=== PATIENT | male | born 1995 | race Caucasian/White ===

== ENCOUNTER 2022-05-27 18:40 | Emergency (ER) | payer BC ==
[2022-05-27] MEDS ORDERED: KETOROLAC 15 MG/ML 1 ML VIAL IVP STA (19:09)
--- NOTE | 2022-05-27 19:18 | ED ---
General Adult HPI - General Chief complaint: Urogenital Stated complaint: Groin Pain Time Seen by Provider: 05/27/22 18:58 Source: patient, RN notes reviewed Mode of arrival: ambulatory Limitations: no limitations - History of Present Illness Initial comments: 27-year-old male with no significant past medical history presents to the emergency department with a chief complaint of right testicular pain. He notes that he has been having this pain since sometime in March. He describes the [place] that comes and goes. It will last for a day and then resolved on its own. He does admit to working on his feet all day however denies any recent long travel or sitting or known trauma/injury. He has been taking tylenol without relief. He denies fever, chills, abdominal pain, flank pain, dysuria, hematuria. Denies concern for STD. He denies hx of varicocele/testicular torsion. - Related Data Previous Rx's Medication Instructions Recorded Doxycycline [Vibramycin] 100 mg PO BID 14 Days #2 capsule 05/27/22 Allergies Allergy/AdvReac Type Severity Reaction Status Date / Time No Known Allergies Allergy Verified 05/27/22 20:43 Review of Systems ROS Statement: Those systems with pertinent positive or pertinent negative responses have been documented in the HPI. ROS Other: All systems not noted in ROS Statement are negative. Past Medical History Past Medical History: No Reported History History of Any Multi-Drug Resistant Organisms: None Reported Additional Past Surgical History / Comment(s): vasectomy Past Psychological History: No Psychological Hx Reported Smoking Status: Never smoker Past Alcohol Use History: Occasional Past Drug Use History: None Reported General Exam Limitations: no limitations General appearance: alert, in no apparent distress Head exam: Present: atraumatic, normocephalic, normal inspection Eye exam: Present: normal appearance, PERRL, EOMI. Absent: scleral icterus, conjunctival injection, periorbital swelling ENT exam: Present: normal exam, mucous membranes moist Neck exam: Present: normal inspection. Absent: tenderness, meningismus, lymphadenopathy Respiratory exam: Present: normal lung sounds bilaterally. Absent: respiratory distress, wheezes, rales, rhonchi, stridor Cardiovascular Exam: Present: regular rate, normal rhythm, normal heart sounds. Absent: systolic murmur, diastolic murmur, rubs, gallop, clicks GI/Abdominal exam: Present: soft, normal bowel sounds. Absent: distended, tenderness, guarding, rebound, rigid exam: Present: normal inspection, testicular tenderness (mild right ), other (cremastic reflex remains intact). Absent: urethral discharge, scrotal swelling External exam: Present: normal external exam. Absent: erythema, swelling, lesions, lacerations, ecchymosis Extremities exam: Present: normal inspection, full ROM, normal capillary refill. Absent: tenderness, pedal edema, joint swelling, calf tenderness Back exam: Present: normal inspection Neurological exam: Present: alert, oriented X3, CN II-XII intact Psychiatric exam: Present: normal affect, normal mood Skin exam: Present: warm, dry, intact, normal color. Absent: rash Course Vital Signs 05/27/22 05/27/22 18:49 21:43 Temperature 97.2 F L 98.3 F Pulse Rate 103 H 68 Respiratory 20 18 Rate Blood Pressure 184/96 142/71 O2 Sat by Pulse 98 99 Oximetry Medical Decision Making - Medical Decision Making Was pt. sent in by a medical professional or institution (LUCIA Bo, ELECTRONIC PLOTTING SYSTEM OPERATOR, urgent care, hospital, or snf...) When possible be specific @ -[No] Did you speak to anyone other than the patient for history (EMS, parent, family, police, friend...)? What history was obtained from this source @ -[No] Did you review nursing and triage notes (agree or disagree)? Why? @ -[I reviewed and agree with nursing and triage notes] Were old charts reviewed (outside hosp., previous admission, EMS record, old EKG, old radiological studies, urgent care reports/EKG's, snf records)? Report findings @ -[No old charts were reviewed] Differential Diagnosis (chest pain, altered mental status, abdominal pain women, abdominal pain men, vaginal bleeding, weakness, fever, dyspnea, syncope, headache, dizziness, GI bleed, back pain, seizure, CVA, palpatations, mental health)? @ -[not applicable] EKG interpreted by me (3pts min.). @ -[As above] X-rays interpreted by me (1pt min.). @ -[None done] CT interpreted by me (1pt min.). @ -[None done] U/S interpreted by me (1pt. min.). @ Scrotal ultrasound negative for any evidence of torsion however suggests epididymitis to the right teste What testing was considered but not performed or refused? (CT, X-rays, U/S, labs)? Why? @ -[None] What meds were considered but not given or refused? Why? @ -[None] Did you discuss the management of the patient with other professionals (professionals i.e. , PA, ELECTRONIC PLOTTING SYSTEM OPERATOR, lab, RT, psych nurse, social sciences chair, demi chef, teacher, conservation enforcement officer, land surveyor manager)? Give summary @ -[No] Was smoking cessation discussed for >3mins.? @ -[No] Was critical care preformed (if so, how long)? @ -[No] Were there social determinants of health that impacted care today? How? (Homelessness, low income, unemployed, alcoholism, drug addiction, transportation, low edu. Level, literacy, decrease access to med. care, shelter, rehab)? @ -[No] Was there de-escalation of care discussed even if they declined (Discuss DNR or withdrawal of care, Hospice)? DNR status @ -[No] What co-morbidities impacted this encounter? (DM, HTN, Smoking, COPD, CAD, Cancer, CVA, ARF, Chemo, Hep., AIDS, mental health diagnosis, sleep apnea, morbid obesity)? @ -[None] Was patient admitted / discharged? Hospital course, mention meds given and route, prescriptions, significant lab abnormalities, going to OR and other pertinent info. @ -27-year-old male presents to the emergency department with testicular pain. he had a history and physical performed while in the emergency department physical exam reveals mild tenderness to the right testicle. Cremastic reflex remains intact. He had lab work and imaging performed. Labs unremarkable. US suggestive of epidymitis. He was given azithromycin, doxycycline, and rocephin. He was given a prescription for doxycycline. He was encouraged to follow up with his primary care doctor within 1-2 days if symptoms worsen or persist. Return precautions were discussed. Patient was discharged in stable condition all questions and comments were addressed. I discussed the case with GISSELL Lauren who agrees with the plan of care. Undiagnosed new problem with uncertain prognosis? @ -[No] Drug Therapy requiring intensive monitoring for toxicity (Heparin, Nitro, Insulin, Cardizem)? @ -[No] Were any procedures done? @ -[No] Diagnosis/symptom? @ -[default] Acute, or Chronic, or Acute on Chronic? @ -acute epididymitis Uncomplicated (without systemic symptoms) or Complicated (systemic symptoms)? @ -uncomplicated Side effects of treatment? @ -[No] Exacerbation, Progression, or Severe Exacerbation? @ -[No] Poses a threat to life or bodily function? How? (Chest pain, [place], [place], pneumonia, PE, COPD, DKA, ARF, appy, cholecystitis, CVA, Diverticulitis, Homicidal, Suicidal, threat to staff... and all critical care pts) @ -[No] - Lab Data Result diagrams: 05/27/22 19:41 05/27/22 19:41 Lab Results 05/27/22 05/27/22 05/27/22 Range/Units 19:41 19:41 20:05 WBC 8.6 (3.8-10.6) k/uL RBC 5.07 (4.30-5.90) m/uL Hgb 14.7 (13.0-17.5) gm/dL Hct 43.2 (39.0-53.0) % MCV 85.2 (80.0-100.0) fL MCH 28.9 (25.0-35.0) pg MCHC 34.0 (31.0-37.0) g/dL RDW 13.5 (11.5-15.5) % Plt Count 209 (150-450) k/uL MPV 8.5 Neutrophils % 64 % Lymphocytes % 27 % Monocytes % 5 % Eosinophils % 2 % Basophils % 1 % Neutrophils # 5.5 (1.3-7.7) k/uL Lymphocytes # 2.3 (1.0-4.8) k/uL Monocytes # 0.4 (0-1.0) k/uL Eosinophils # 0.2 (0-0.7) k/uL Basophils # 0.1 (0-0.2) k/uL Sodium 141 (137-145) mmol/L Potassium 4.6 (3.5-5.1) mmol/L Chloride 109 H (98-107) mmol/L Carbon Dioxide 25 (22-30) mmol/L Anion Gap 7 mmol/L BUN 16 (9-20) mg/dL Creatinine 0.96 (0.66-1.25) mg/dL Est GFR (CKD-EPI)AfAm >90 (>60 ml/min/1.73 sqM) Est GFR (CKD-EPI)NonAf >90 (>60 ml/min/1.73 sqM) Glucose 91 (74-99) mg/dL Calcium 9.2 (8.4-10.2) mg/dL Urine Color Yellow Urine Appearance Clear (Clear) Urine pH 5.5 (5.0-8.0) Ur Specific [place] 1.029 (1.001-1.035) Urine Protein Negative (Negative) Urine Glucose (UA) Negative (Negative) Urine Ketones Negative (Negative) Urine Blood Trace H (Negative) Urine Nitrite Negative (Negative) Urine Bilirubin Negative (Negative) Urine Urobilinogen <2.0 (<2.0) mg/dL Ur Leukocyte Esterase Negative (Negative) Urine RBC 8 H (0-5) /hpf Urine WBC 2 (0-5) /hpf Urine Mucus Moderate H (None) /hpf Disposition Clinical Impression: Epididymitis Disposition: HOME SELF-CARE Condition: Stable Prescriptions: Doxycycline [Vibramycin] 100 mg PO BID 14 Days #2 capsule Is patient prescribed a controlled substance at d/c from ED?: No Referrals: None,Stated [Primary Care Provider] - 1-2 days Daniel Parry MD [STAFF PHYSICIAN] - 1-2 days
[2022-05-27 19:50] LABS: Basophils # (A) 0.1 k/uL (0-0.2); Basophils % (A) 1 %; Eosinophils # (A) 0.2 k/uL (0-0.7); Eosinophils % (A) 2 %; HCT 43.2 % (39.0-53.0); HGB 14.7 gm/dL (13.0-17.5); Lymphocytes # (A) 2.3 k/uL (1.0-4.8); Lymphocytes % (A) 27 %; MCH 28.9 pg (25.0-35.0); MCV 85.2 fL (80.0-100.0); Mean Platelet Volume 8.5; Monocytes # (A) 0.4 k/uL (0-1.0); Monocytes % (A) 5 %; Neutrophils # (A) 5.5 k/uL (1.3-7.7); Neutrophils % (A) 64 %; Platelet Count 209 k/uL (150-450); RBC 5.07 m/uL (4.30-5.90); RDW 13.5 % (11.5-15.5); WBC 8.6 k/uL (3.8-10.6)
[2022-05-27 19:56] LABS: African American GFR (CKD) >90 (>60 ml/min/1.73 sqM); Anion Gap 7 mmol/L; Blood Urea Nitrogen 16 mg/dL (9-20); Calcium 9.2 mg/dL (8.4-10.2); Carbon Dioxide 25 mmol/L (22-30); Chloride 109 mmol/L (98-107); Glucose 91 mg/dL (74-99); Non-African American GFR(CKD) >90 (>60 ml/min/1.73 sqM); Potassium 4.6 mmol/L (3.5-5.1); Sodium 141 mmol/L (137-145)
--- NOTE | 2022-05-27 20:23 | US ---
EXAMINATION TYPE: US scrotum with doppler. Grayscale and color Doppler Duplex imaging performed of t edwin scrotum. DATE OF EXAM: 05/27/2022 COMPARISON: NONE CLINICAL HISTORY: testicular pain. Right testicular pain on and off x "a couple months" EXAM MEASUREMENTS: TESTICLES: Right Testicle: 5.1 x 4.4 x 3.2 cm Left Testicle: 5.6 x 3.3 x 3.1 cm EPIDIDYMIS HEAD: Right Epididymis: 1.5 cm. Epididymal cyst visualized measuring 1.1 x 0.8 x 0.8cm Left Epididymis: 1.1 cm Doppler performed to assess for testicular vascularity; good bilateral color flow and waveforms are s een. There is no evidence of testicular torsion. Presence of hydroceles: No Presence of varicoceles: No Complex and heterogeneous area visualized lateral to the right testicle with hypervascularity. IMPRESSION: 1. No testicular mass or torsion. 2. Increased flow to the right epididymis suggestive of epididymitis.
[2022-05-27 20:32] LABS: Appearance,Urine Clear (Clear); Bilirubin,Urine Negative (Negative); Blood,Urine Trace (Negative); Color,Urine Yellow; Glucose,Urine (UA) Negative (Negative); Ketones,Urine Negative (Negative); Leukocyte Esterase,Urine Negative (Negative); Mucus,Urine Moderate /hpf; Nitrite,Urine Negative (Negative); PH, Urine 5.5 (5.0-8.0); Protein,Urine Negative (Negative); RBC,Urine 8 /hpf (0-5); Specific Gravity,Urine 1.029 (1.001-1.035); Urobilinogen,Urine <2.0 mg/dL (<2.0); WBC,Urine 2 /hpf (0-5)
[2022-05-27] MEDS ORDERED: AZITHROMYCIN 500 MG TAB PO STA (21:26)
[2022-05-27] MEDS ORDERED: DOXYCYCLINE 100 MG CAP PO STA (21:27)
[2022-05-27 21:44] VITALS: BP 142/71; PULSE 68; RESP 18; TEMP 98.3
== END 2022-05-27 21:43 | disposition home or self-care (01) ==
LOC: EC 18:40
DX: N45.1 Epididymitis (principal); N50.3 Cyst of epididymis
CPT/HCPCS: 36415; 80048; 85025; 81001; 93975; 76870; 99284; 96374; J1885; 87491; 87591

== ENCOUNTER 2022-08-15 10:58 | Emergency (ER) | payer BC ==
[2022-08-15] MEDS ORDERED: ORPHENADRINE 30 MG/ML 2 ML VIAL IM STA (11:10)
[2022-08-15] MEDS ORDERED: KETOROLAC 15 MG/ML 1 ML VIAL IM STA (11:10)
[2022-08-15] MEDS ORDERED: LIDOCAINE 5% PATCH TOPICAL STA (11:10)
--- NOTE | 2022-08-15 11:12 | ED ---
Back Pain HPI - General Chief Complaint: Back Pain/Injury Stated Complaint: back pain Time Seen by Provider: 08/15/22 11:06 Source: patient Limitations: no limitations - History of Present Illness Initial Comments: Patient is a 27-year-old male who presents to the emergency department for back pain. Patient woke up with the pain this morning he denies any injury or falls. Patient has pain in his right lower back. It is worse with movement of the torso and standing. There is no radiation down the legs. No numbness or tingling, no saddle anesthesia, no loss of bowel or bladder function. No leg weakness. He denies fever, chills, abdominal pain, burning with urination, blood in the urine. - Related Data Previous Rx's Medication Instructions Recorded Doxycycline [Vibramycin] 100 mg PO BID 14 Days #2 capsule 05/27/22 Cyclobenzaprine [Flexeril] 10 mg PO TID PRN #15 tab 08/15/22 Ibuprofen [Motrin] 800 mg PO Q8HR PRN #30 tab 08/15/22 Lidocaine 5% Patch [Lidoderm 5% 1 patch TOPICAL DAILY PRN #7 patch 08/15/22 Patch] Allergies Allergy/AdvReac Type Severity Reaction Status Date / Time No Known Allergies Allergy Verified 08/15/22 11:01 Review of Systems ROS Statement: Those systems with pertinent positive or pertinent negative responses have been documented in the HPI. ROS Other: All systems not noted in ROS Statement are negative. Past Medical History Past Medical History: No Reported History History of Any Multi-Drug Resistant Organisms: None Reported Additional Past Surgical History / Comment(s): vasectomy Past Psychological History: No Psychological Hx Reported Smoking Status: Never smoker Past Alcohol Use History: Occasional Past Drug Use History: None Reported General Exam Limitations: no limitations General appearance: alert, in no apparent distress Head exam: Present: atraumatic, normocephalic, normal inspection Respiratory exam: Present: normal lung sounds bilaterally. Absent: respiratory distress, wheezes, rales, rhonchi, stridor Cardiovascular Exam: Present: regular rate, normal rhythm, normal heart sounds. Absent: systolic murmur, diastolic murmur, rubs, gallop, clicks GI/Abdominal exam: Present: soft, normal bowel sounds. Absent: distended, tenderness, guarding, rebound, rigid Extremities exam: Present: normal inspection, full ROM, normal capillary refill. Absent: pedal edema, joint swelling Back exam: Present: normal inspection, full ROM. Absent: tenderness, CVA tenderness (R), CVA tenderness (L), paraspinal tenderness, vertebral tenderness Neurological exam: Present: alert, oriented X3, CN II-XII intact Psychiatric exam: Present: normal affect, normal mood Skin exam: Present: warm, dry, intact, normal color. Absent: rash Course Vital Signs 08/15/22 08/15/22 10:59 12:11 Temperature 98.6 F 98 F Pulse Rate 83 80 Respiratory 18 16 Rate Blood Pressure 153/86 147/86 O2 Sat by Pulse 99 98 Oximetry Medical Decision Making - Medical Decision Making Was pt. sent in by a medical professional or institution (LUCIA Bo, STUDENT SUPPORT COUNSELOR, urgent care, hospital, or fpc...) When possible be specific @ -No Did you speak to anyone other than the patient for history (EMS, parent, family, police, friend...)? What history was obtained from this source @ -No Did you review nursing and triage notes (agree or disagree)? Why? @ -I reviewed and agree with nursing and triage notes Were old charts reviewed (outside hosp., previous admission, EMS record, old EKG, old radiological studies, urgent care reports/EKG's, fpc records)? Report findings @ -No old charts were reviewed Differential Diagnosis (chest pain, altered mental status, abdominal pain women, abdominal pain men, vaginal bleeding, weakness, fever, dyspnea, syncope, headache, dizziness, GI bleed, back pain, seizure, CVA, palpatations, mental health)? @ -Differential Back Pain: Strain, zoster, cauda equina syndrome, epidural abscess, vertebral osteomyelitis, discitis, fracture, subluxation, disc herniation, DJD, spinal stenosis, dissection, AAA, pancreatitis, peptic ulcer disease, pyelonephritis, kidney stone, this is not meant to be an all-inclusive list. EKG interpreted by me (3pts min.). @ -As above X-rays interpreted by me (1pt min.). @ -None done CT interpreted by me (1pt min.). @ -None done U/S interpreted by me (1pt. min.). @ -[None done] What testing was considered but not performed or refused? (CT, X-rays, U/S, labs)? Why? @ -Considered imaging while the patient did not sustain injury or fall. He did not have vertebral tenderness. No signs or symptoms of cauda equina. What meds were considered but not given or refused? Why? @ -[None] Did you discuss the management of the patient with other professionals (professionals i.e. Dr., PA, STUDENT SUPPORT COUNSELOR, lab, RT, psych nurse, transition social worker, duct maker, teacher, staff air defense officer, transplant case manager)? Give summary @ -[No] Was smoking cessation discussed for >3mins.? @ -[No] Was critical care preformed (if so, how long)? @ -[No] Were there social determinants of health that impacted care today? How? (Homelessness, low income, unemployed, alcoholism, drug addiction, transportation, low edu. Level, literacy, decrease access to med. care, detention, rehab)? @ -[No] Was there de-escalation of care discussed even if they declined (Discuss DNR or withdrawal of care, Hospice)? DNR status @ -[No] What co-morbidities impacted this encounter? (DM, HTN, Smoking, COPD, CAD, Cancer, CVA, ARF, Chemo, Hep., AIDS, mental health diagnosis, sleep apnea, morbid obesity)? @ -[None] Was patient admitted / discharged? Hospital course, mention meds given and route, prescriptions, significant lab abnormalities, going to OR and other pertinent info. @ -Patient presented for back pain. Clinical presentation consistent with mechanical pain. No sinus symptoms or cauda equina. Patient treated in the emergency department with improvement. He'll be discharged with symptomatic management. Undiagnosed new problem with uncertain prognosis? @ -[No] Drug Therapy requiring intensive monitoring for toxicity (Heparin, Nitro, Insulin, Cardizem)? @ -[No] Were any procedures done? @ -[No] Diagnosis/symptom? @ -Mechanical back pain Acute, or Chronic, or Acute on Chronic? @ -acute Uncomplicated (without systemic symptoms) or Complicated (systemic symptoms)? @ -[Uncomplicated Side effects of treatment? @ -[No] Exacerbation, Progression, or Severe Exacerbation? @ -[No] Poses a threat to life or bodily function? How? (Chest pain, [place], [place], pneumonia, PE, COPD, DKA, ARF, appy, cholecystitis, CVA, Diverticulitis, Homicidal, Suicidal, threat to staff... and all critical care pts) @ -[No] Dr. Luna my attending Disposition Clinical Impression: Mechanical back pain Disposition: HOME SELF-CARE Condition: Good Instructions (If sedation given, give patient instructions): Acute Low Back Pain (ED) Additional Instructions: Take medication as directed. Apply warm compress to back. Follow-up with primary care provider in one to 2 days. Return to the emergency department if you experience new, concerning, or worsening symptoms. Prescriptions: Cyclobenzaprine [Flexeril] 10 mg PO TID PRN #15 tab PRN Reason: Muscle Spasm Lidocaine 5% Patch [Lidoderm 5% Patch] 1 patch TOPICAL DAILY PRN #7 patch PRN Reason: Pain Ibuprofen [Motrin] 800 mg PO Q8HR PRN #30 tab PRN Reason: Pain Is patient prescribed a controlled substance at d/c from ED?: No Referrals: None,Stated [Primary Care Provider] - 1-2 days Time of Disposition: 12:06
[2022-08-15 12:13] VITALS: BP 147/86; PULSE 80; RESP 16; TEMP 98
[2022-08-15 12:33] LABS: Appearance,Urine Clear (Clear); Bilirubin,Urine Negative (Negative); Blood,Urine Moderate (Negative); Color,Urine Yellow; Glucose,Urine (UA) Negative (Negative); Ketones,Urine Negative (Negative); Leukocyte Esterase,Urine Negative (Negative); Mucus,Urine Rare /hpf; Nitrite,Urine Negative (Negative); PH, Urine 5.5 (5.0-8.0); Protein,Urine Negative (Negative); RBC,Urine 37 /hpf (0-5); Specific Gravity,Urine 1.017 (1.001-1.035); Urobilinogen,Urine <2.0 mg/dL (<2.0); WBC,Urine 1 /hpf (0-5)
== END 2022-08-15 12:13 | disposition home or self-care (01) ==
LOC: EC 10:58
DX: M54.50 Low back pain, unspecified (principal)
CPT/HCPCS: 81001; 99283; 96372 ×2; J2360; J1885

== ENCOUNTER 2022-08-16 11:45 | Emergency (ER) | payer BC ==
[2022-08-16 11:51] VITALS: RESP 18; TEMP 98
[2022-08-16] MEDS ORDERED: SODIUM CHLORIDE 0.9% 500 ML 500 ML IV STA (11:54)
[2022-08-16] MEDS ORDERED: KETOROLAC 15 MG/ML 1 ML VIAL IVP STA (11:54)
[2022-08-16] MEDS ORDERED: ONDANSETRON 4 MG/2 ML VIAL IVP STA (11:54)
[2022-08-16] MEDS ORDERED: SODIUM CHLORIDE 0.9% 1,000 ML IV STA (11:54)
[2022-08-16] MEDS ORDERED: HYDROmorphone 0.5 MG/0.5 ML SYRINGE IVP STA (11:55)
--- NOTE | 2022-08-16 12:00 | ED ---
General Adult HPI - General Chief complaint: Back Pain/Injury Stated complaint: Back Pain - revisit Time Seen by Provider: 08/16/22 11:52 Source: patient, RN notes reviewed Mode of arrival: ambulatory Limitations: no limitations - History of Present Illness Initial comments: 27-year-old male presents emergency Department chief complaint right flank pain, right lower back pain. Patient states started yesterday sudden onset with no injury. Patient states nothing makes the pain feel better or worse. Patient states pain has become more extreme associated nausea and vomiting. Patient has no history kidney stones denies any difficulty urinating no dysuria no hematuria. Denies any change of bowel habits denies any lower extremity weakness denies bowel, bladder incontinence or retention. - Related Data Previous Rx's Medication Instructions Recorded Doxycycline [Vibramycin] 100 mg PO BID 14 Days #2 capsule 05/27/22 Cyclobenzaprine [Flexeril] 10 mg PO TID PRN #15 tab 08/15/22 Ibuprofen [Motrin] 800 mg PO Q8HR PRN #30 tab 08/15/22 Lidocaine 5% Patch [Lidoderm 5% 1 patch TOPICAL DAILY PRN #7 patch 08/15/22 Patch] HYDROcodone/APAP 7.5-325MG [[place] 1 tab PO Q6HR PRN 3 Days #12 tab 08/16/22 7.5-325] Ondansetron Odt [Zofran Odt] 4 mg PO Q8HR PRN #10 tab 08/16/22 Tamsulosin [Flomax] 0.4 mg PO DAILY #7 cap 08/16/22 Allergies Allergy/AdvReac Type Severity Reaction Status Date / Time No Known Allergies Allergy Verified 08/16/22 11:51 Review of Systems ROS Statement: Those systems with pertinent positive or pertinent negative responses have been documented in the HPI. ROS Other: All systems not noted in ROS Statement are negative. Past Medical History Past Medical History: No Reported History History of Any Multi-Drug Resistant Organisms: None Reported Additional Past Surgical History / Comment(s): vasectomy Past Psychological History: No Psychological Hx Reported Smoking Status: Never smoker Past Alcohol Use History: Occasional Past Drug Use History: None Reported General Exam Limitations: no limitations General appearance: alert, in no apparent distress Head exam: Present: atraumatic, normocephalic, normal inspection Respiratory exam: Present: normal lung sounds bilaterally. Absent: respiratory distress, wheezes, rales, rhonchi, stridor Cardiovascular Exam: Present: regular rate, normal rhythm, normal heart sounds. Absent: systolic murmur, diastolic murmur, rubs, gallop, clicks GI/Abdominal exam: Present: soft, normal bowel sounds. Absent: distended, tenderness, guarding, rebound, rigid Extremities exam: Present: normal inspection, full ROM, normal capillary refill. Absent: tenderness, pedal edema, joint swelling, calf tenderness Back exam: Present: full ROM, tenderness, CVA tenderness (R), paraspinal tenderness. Absent: CVA tenderness (L) Neurological exam: Present: alert, oriented X3 Course Vital Signs 08/16/22 11:48 Temperature 98.0 F Pulse Rate 99 Respiratory 18 Rate Blood Pressure 147/97 O2 Sat by Pulse 98 Oximetry Medical Decision Making - Medical Decision Making Was pt. sent in by a medical professional or institution (LUCIA Bo, TAXATION INSPECTOR, urgent care, hospital, or penitentiary...) When possible be specific @ -[No] Did you speak to anyone other than the patient for history (EMS, parent, family, police, friend...)? What history was obtained from this source @ -[No] Did you review nursing and triage notes (agree or disagree)? Why? @ -[I reviewed and agree with nursing and triage notes] Were old charts reviewed (outside hosp., previous admission, EMS record, old EKG, old radiological studies, urgent care reports/EKG's, penitentiary records)? Report findings @ -[Reviewed chart and urinalysis from yesterday] Differential Diagnosis (chest pain, altered mental status, abdominal pain women, abdominal pain men, vaginal bleeding, weakness, fever, dyspnea, syncope, headache, dizziness, GI bleed, back pain, seizure, CVA, palpatations, mental health, musculoskeletal)? @ -[nDifferential Back Pain: Strain, zoster, cauda equina syndrome, epidural abscess, vertebral osteomyelitis, discitis, fracture, subluxation, disc herniation, DJD, spinal stenosis, dissection, AAA, pancreatitis, peptic ulcer disease, pyelonephritis, kidney stone, this is not meant to be an all-inclusive list.ble] EKG interpreted by me (3pts min.). @ -[None] X-rays interpreted by me (1pt min.). @ -[None done] CT interpreted by me (1pt min.). @ -[CT of the abdomen and pelvis shows evidence of 7.6 mm UPJ stone on the right U/S interpreted by me (1pt. min.). @ -[None done] What testing was considered but not performed or refused? (CT, X-rays, U/S, labs)? Why? @ -[None] What meds were considered but not given or refused? Why? @ -[None] Did you discuss the management of the patient with other professionals (professionals i.e. , PA, TAXATION INSPECTOR, lab, RT, psych nurse, clinical social work therapist, furniture installer, teacher, air crew officer, casework specialist)? Give summary @ -[No] Was smoking cessation discussed for >3mins.? @ -[No] Was critical care preformed (if so, how long)? @ -[No] Were there social determinants of health that impacted care today? How? (Homelessness, low income, unemployed, alcoholism, drug addiction, transportation, low edu. Level, literacy, decrease access to med. care, long term, rehab)? @ -[No] Was there de-escalation of care discussed even if they declined (Discuss DNR or withdrawal of care, Hospice)? DNR status @ -[No] What co-morbidities impacted this encounter? (DM, HTN, Smoking, COPD, CAD, Cancer, CVA, ARF, Chemo, Hep., AIDS, mental health diagnosis, sleep apnea, morbid obesity)? @ -[None] Was patient admitted / discharged? Hospital course, mention meds given and route, prescriptions, significant lab abnormalities, going to OR and other pertinent info. @ -[Discharge patient has evidence of ureteral calculi patient's pain is improved. Patient needs follow-up with urologist provided information. Return parameters were discussed.] Undiagnosed new problem with uncertain prognosis? @ -[No] Drug Therapy requiring intensive monitoring for toxicity (Heparin, Nitro, Ins ulin, Cardizem)? @ -[No] Were any procedures done? @ -[No] Diagnosis/symptom? @ -[Ureteral calculi] Acute, or Chronic, or Acute on Chronic? @ -[Acute] Uncomplicated (without systemic symptoms) or Complicated (systemic symptoms)? @ -[Uncomplicated] Side effects of treatment? @ -[No] Exacerbation, Progression, or Severe Exacerbation? @ -[No] Poses a threat to life or bodily function? How? (Chest pain, [place], [place], pneumonia, PE, COPD, DKA, ARF, appy, cholecystitis, CVA, Diverticulitis, Homicidal, Suicidal, threat to staff... and all critical care pts) @ -[No] - Lab Data Result diagrams: 08/16/22 11:59 08/16/22 11:59 Lab Results 08/16/22 08/16/22 08/16/22 Range/Units 11:59 11:59 11:59 WBC 11.6 H (3.8-10.6) k/uL RBC 5.43 (4.30-5.90) m/uL Hgb 15.6 (13.0-17.5) gm/dL Hct 46.5 (39.0-53.0) % MCV 85.7 (80.0-100.0) fL MCH 28.7 (25.0-35.0) pg MCHC 33.5 (31.0-37.0) g/dL RDW 13.5 (11.5-15.5) % Plt Count 221 (150-450) k/uL MPV 9.2 Neutrophils % 76 % Lymphocytes % 16 % Monocytes % 5 % Eosinophils % 1 % Basophils % 0 % Neutrophils # 8.9 H (1.3-7.7) k/uL Lymphocytes # 1.9 (1.0-4.8) k/uL Monocytes # 0.6 (0-1.0) k/uL Eosinophils # 0.1 (0-0.7) k/uL Basophils # 0.1 (0-0.2) k/uL Sodium 139 (137-145) mmol/L Potassium 5.0 (3.5-5.1) mmol/L Chloride 105 (98-107) mmol/L Carbon Dioxide 25 (22-30) mmol/L Anion Gap 9 mmol/L BUN 16 (9-20) mg/dL Creatinine 1.44 H (0.66-1.25) mg/dL Est GFR (CKD-EPI)AfAm 76 (>60 ml/min/1.73 sqM) Est GFR (CKD-EPI)NonAf 66 (>60 ml/min/1.73 sqM) Glucose 113 H (74-99) mg/dL Calcium 9.6 (8.4-10.2) mg/dL Total Bilirubin 0.6 (0.2-1.3) mg/dL AST 35 (17-59) U/L ALT 61 H (4-49) U/L Alkaline Phosphatase 85 (38-126) U/L Total Protein 8.3 H (6.3-8.2) g/dL Albumin 4.6 (3.5-5.0) g/dL Urine Color Light Yellow Urine Appearance Clear (Clear) Urine pH 5.5 (5.0-8.0) Ur Specific [place] 1.014 (1.001-1.035) Urine Protein Negative (Negative) Urine Glucose (UA) Negative (Negative) Urine Ketones Negative (Negative) Urine Blood Small H (Negative) Urine Nitrite Negative (Negative) Urine Bilirubin Negative (Negative) Urine Urobilinogen <2.0 (<2.0) mg/dL Ur Leukocyte Esterase Negative (Negative) Urine RBC 5 (0-5) /hpf Urine WBC 2 (0-5) /hpf Ur Squamous Epith Cells <1 (0-4) /hpf Urine Mucus Rare H (None) /hpf Disposition Clinical Impression: Ureteral calculus, right Disposition: HOME SELF-CARE Condition: Stable Instructions (If sedation given, give patient instructions): Kidney Stones (ED) Additional Instructions: Please return to the Emergency Department if symptoms worsen or any other c oncerns. Prescriptions: Tamsulosin [Flomax] 0.4 mg PO DAILY #7 cap HYDROcodone/APAP 7.5-325MG [[place] 7.5-325] 1 tab PO Q6HR PRN 3 Days #12 tab PRN Reason: pain Ondansetron Odt [Zofran Odt] 4 mg PO Q8HR PRN #10 tab PRN Reason: Nausea Is patient prescribed a controlled substance at d/c from ED?: Yes When asked, does pt state using other controlled substances?: No If prescribed controlled substance>3 days was MAPS reviewed?: Prescribed <3 Days If opioid is for acute pain is fill amount 7 days or less?: Yes If Rx opioid, was Start Talking consent form obtained?: Yes Referrals: [place] MD [STAFF PHYSICIAN] - 1-2 days Time of Disposition: 13:02
[2022-08-16 12:20] LABS: Basophils # (A) 0.1 k/uL (0-0.2); Basophils % (A) 0 %; Eosinophils # (A) 0.1 k/uL (0-0.7); Eosinophils % (A) 1 %; HCT 46.5 % (39.0-53.0); HGB 15.6 gm/dL (13.0-17.5); Lymphocytes # (A) 1.9 k/uL (1.0-4.8); Lymphocytes % (A) 16 %; MCH 28.7 pg (25.0-35.0); MCHC 33.5 g/dL (31.0-37.0); MCV 85.7 fL (80.0-100.0); Mean Platelet Volume 9.2; Monocytes # (A) 0.6 k/uL (0-1.0); Monocytes % (A) 5 %; Neutrophils # (A) 8.9 k/uL (1.3-7.7); Neutrophils % (A) 76 %; Platelet Count 221 k/uL (150-450); RBC 5.43 m/uL (4.30-5.90); RDW 13.5 % (11.5-15.5); WBC 11.6 k/uL (3.8-10.6)
[2022-08-16 12:31] LABS: Albumin 4.6 g/dL (3.5-5.0); Calcium 9.6 mg/dL (8.4-10.2); Total Bilirubin 0.6 mg/dL (0.2-1.3); Total Protein 8.3 g/dL (6.3-8.2)
--- NOTE | 2022-08-16 12:35 | CT ---
EXAMINATION TYPE: CT abdomen pelvis wo con DATE OF EXAM: 08/16/2022 COMPARISON: None HISTORY: Right sided flank pain and microscopic hematuria. CT DLP: 1444.4 mGycm Automated exposure control for dose reduction was used. TECHNIQUE: Helical acquisition of images was performed from the lung bases through the pelvis. FINDINGS: The lung bases are clear. There is mild to moderate hydronephrosis secondary to a 7.6 mm obstructing calculus and the right UPJ . There are no left renal calculi. There is no left hydronephrosis. The caliber the aorta is normal. The gallbladder is normal without gallstones, distention or pericholecystic fluid. There is no organomegaly involving the liver, pancreas, spleen or adrenal glands. The bowel loops are normal in caliber and there is no dilatation or obstruction. No inflammatory barrientos ges are identified in the bowel wall or mesentery. There is no free intraperitoneal air or fluid. There is no pelvic mass, free fluid, abscess or adenopathy. No focal osseous abnormalities are seen. IMPRESSION: Right mild to moderate hydronephrosis secondary to a 7.6 mm right UPJ calculus. Other significant abn ormalities.
[2022-08-16 12:47] LABS: Appearance,Urine Clear (Clear); Bilirubin,Urine Negative (Negative); Blood,Urine Small (Negative); Color,Urine Light Yellow; Glucose,Urine (UA) Negative (Negative); Ketones,Urine Negative (Negative); Leukocyte Esterase,Urine Negative (Negative); Mucus,Urine Rare /hpf; Nitrite,Urine Negative (Negative); PH, Urine 5.5 (5.0-8.0); Protein,Urine Negative (Negative); RBC,Urine 5 /hpf (0-5); Specific Gravity,Urine 1.014 (1.001-1.035); Squamous Epithelial Cell,Urine <1 /hpf (0-4); Urobilinogen,Urine <2.0 mg/dL (<2.0); WBC,Urine 2 /hpf (0-5)
[2022-08-16 13:18] VITALS: BP 142/84; PULSE 92
== END 2022-08-16 13:18 | disposition home or self-care (01) ==
LOC: EC 11:45
DX: N13.2 Hydronephrosis with renal and ureteral calculous obstruction (principal)
CPT/HCPCS: 36415; 80053; 85025; 81001; 74176; 99284; 96374; 96375 ×2; 96361; J2405; J1885; J1170

== ENCOUNTER 2022-08-17 23:18 | Emergency (ER) | payer BC ==
[2022-08-17 23:27] VITALS: TEMP 98.4
[2022-08-17] MEDS ORDERED: KETOROLAC 15 MG/ML 1 ML VIAL IVP STA (23:33)
[2022-08-17] MEDS ORDERED: SODIUM CHLORIDE 0.9% 2,000 ML IV STA (23:33)
[2022-08-17] MEDS ORDERED: ONDANSETRON 4 MG/2 ML VIAL IVP STA (23:33)
[2022-08-17] MEDS ORDERED: HYDROmorphone 0.5 MG/0.5 ML SYRINGE IVP STA (23:34)
[2022-08-18 00:03] LABS: Basophils % (A) 0 %; Eosinophils # (A) 0.2 k/uL (0-0.7); Eosinophils % (A) 2 %; HGB 14.7 gm/dL (13.0-17.5); Lymphocytes # (A) 1.6 k/uL (1.0-4.8); Lymphocytes % (A) 20 %; MCH 29.4 pg (25.0-35.0); MCHC 34.2 g/dL (31.0-37.0); MCV 86.1 fL (80.0-100.0); Mean Platelet Volume 8.9; Monocytes # (A) 0.5 k/uL (0-1.0); Monocytes % (A) 6 %; Neutrophils # (A) 5.9 k/uL (1.3-7.7); Neutrophils % (A) 71 %; Platelet Count 206 k/uL (150-450); RBC 4.99 m/uL (4.30-5.90); RDW 13.4 % (11.5-15.5); WBC 8.3 k/uL (3.8-10.6)
[2022-08-18 00:40] LABS: Albumin 4.4 g/dL (3.5-5.0); Calcium 9.1 mg/dL (8.4-10.2); Total Bilirubin 0.7 mg/dL (0.2-1.3); Total Protein 7.8 g/dL (6.3-8.2)
--- NOTE | 2022-08-18 01:23 | XR ---
EXAM: XR Abdomen, 1 View and XR Chest, 1 View CLINICAL HISTORY: ITS.REASON XR Reason: Flank pain, kidney stone TECHNIQUE: Frontal view of the chest and abdomen/pelvis. COMPARISON: No relevant prior studies available. FINDINGS: Intraperitoneal space: No free air. Gastrointestinal tract: Moderate amount of stool within the colon. Nonobstructive bowel gas pattern. Bones/joints: Unremarkable. IMPRESSION: No acute findings in the abdomen/pelvis.
--- NOTE | 2022-08-18 01:33 | ED ---
Abdominal Pain HPI - General Chief Complaint: Abdominal Pain Stated Complaint: Kidney Stone Time Seen by Provider: 08/17/22 23:33 Source: patient, family, RN notes reviewed Mode of arrival: ambulatory Limitations: no limitations - History of Present Illness Initial Comments: 27-year-old male presents emergency Department with chief complaint right flank pain. Patient has had 2 prior ER visits for similar complaints. Patient states pain is severe he states he doubled his pain medication at home states has not helped. He states that he cannot tolerate the pain. Patient does admit to nausea without vomiting today. He states nothing makes the pain feel better or worse he states pain is constant does intensify. Patient denies fevers or chills. - Related Data Previous Rx's Medication Instructions Recorded Doxycycline [Vibramycin] 100 mg PO BID 14 Days #2 capsule 05/27/22 Cyclobenzaprine [Flexeril] 10 mg PO TID PRN #15 tab 08/15/22 Ibuprofen [Motrin] 800 mg PO Q8HR PRN #30 tab 08/15/22 Lidocaine 5% Patch [Lidoderm 5% 1 patch TOPICAL DAILY PRN #7 patch 08/15/22 Patch] HYDROcodone/APAP 7.5-325MG [[place] 1 tab PO Q6HR PRN 3 Days #12 tab 08/16/22 7.5-325] Ondansetron Odt [Zofran Odt] 4 mg PO Q8HR PRN #10 tab 08/16/22 Tamsulosin [Flomax] 0.4 mg PO DAILY #7 cap 08/16/22 Ketorolac [Toradol] 10 mg PO Q8HR #15 tab 08/18/22 Allergies Allergy/AdvReac Type Severity Reaction Status Date / Time No Known Allergies Allergy Verified 08/17/22 23:27 Review of Systems ROS Statement: Those systems with pertinent positive or pertinent negative responses have been documented in the HPI. ROS Other: All systems not noted in ROS Statement are negative. Past Medical History Past Medical History: No Reported History History of Any Multi-Drug Resistant Organisms: None Reported Additional Past Surgical History / Comment(s): vasectomy Past Psychological History: No Psychological Hx Reported Smoking Status: Never smoker Past Alcohol Use History: Occasional Past Drug Use History: None Reported General Exam Limitations: no limitations General appearance: alert, in no apparent distress Head exam: Present: atraumatic, normocephalic, normal inspection Eye exam: Present: normal appearance, PERRL, EOMI. Absent: scleral icterus, conjunctival injection, periorbital swelling ENT exam: Present: normal exam, mucous membranes moist Respiratory exam: Present: normal lung sounds bilaterally. Absent: respiratory distress, wheezes, rales, rhonchi, stridor Cardiovascular Exam: Present: normal rhythm, tachycardia, normal heart sounds. Absent: systolic murmur, diastolic murmur, rubs, gallop, clicks GI/Abdominal exam: Present: soft, tenderness, normal bowel sounds. Absent: distended, guarding, rebound, rigid Back exam: Present: CVA tenderness (R) Neurological exam: Present: alert Course Vital Signs 08/17/22 08/18/22 23:25 02:22 Temperature 98.4 F Pulse Rate 124 H 87 Respiratory 20 18 Rate Blood Pressure 155/103 144/83 O2 Sat by Pulse 97 98 Oximetry Medical Decision Making - Medical Decision Making Was pt. sent in by a medical professional or institution (, PA, INFORMATION SECURITY SYSTEMS INSTRUCTOR, urgent care, hospital, or shelter...) When possible be specific @ -No Did you speak to anyone other than the patient for history (EMS, parent, family, police, friend...)? What history was obtained from this source @ -No Did you review nursing and triage notes (agree or disagree)? Why? @ -I reviewed and agree with nursing and triage notes Were old charts reviewed (outside hosp., previous admission, EMS record, old EKG, old radiological studies, urgent care reports/EKG's, shelter records)? Report findings @ -Reviewed labs and CT from yesterday Differential Diagnosis (chest pain, altered mental status, abdominal pain women, abdominal pain men, vaginal bleeding, weakness, fever, dyspnea, syncope, headache, dizziness, GI bleed, back pain, seizure, CVA, palpatations, mental health, musculoskeletal)? @ -nDifferential Abdominal Pain Men: Appendicitis, cholecystitis, diverticulosis, ischemic bowel, pancreatitis, hepatitis, UTI, gastroenteritis, AAA, incarcerated hernia, bowel obstruction, constipation, inflammatory bowel, hepatitis, peptic ulcer disease, splenic infarction, perforated viscus, testicular torsion, this is not meant to be an all-inclusive listble EKG interpreted by me (3pts min.). @ -None X-rays interpreted by me (1pt min.). @ -KUB does not show an acute process CT interpreted by me (1pt min.). @ -None done U/S interpreted by me (1pt. min.). @ -None done What testing was considered but not performed or refused? (CT, X-rays, U/S, labs)? Why? @ -None What meds were considered but not given or refused? Why? @ -None Did you discuss the management of the patient with other professionals (professionals i.e. , PA, INFORMATION SECURITY SYSTEMS INSTRUCTOR, lab, RT, psych nurse, aids social worker, junior engineer, teacher, transportation officer, skilled nursing case manager)? Give summary @ -No Was smoking cessation discussed for >3mins.? @ -No Was critical care preformed (if so, how long)? @ -No Were there social determinants of health that impacted care today? How? (Homelessness, low income, unemployed, alcoholism, drug addiction, transportation, low edu. Level, literacy, decrease access to med. care, [facility], rehab)? @ -No Was there de-escalation of care discussed even if they declined (Discuss DNR or withdrawal of care, Hospice)? DNR status @ -No What co-morbidities impacted this encounter? (DM, HTN, Smoking, COPD, CAD, Cancer, CVA, ARF, Chemo, Hep., AIDS, mental health diagnosis, sleep apnea, morbid obesity)? @ -None Was patient admitted / discharged? Hospital course, mention meds given and r oute, prescriptions, significant lab abnormalities, going to OR and other pertinent info. @ -Discharge patient instructed to call urology given the morning for follow- up. Patient's pain is improved. Patient discharged with sharp pain meds as plan. Undiagnosed new problem with uncertain prognosis? @ -No Drug Therapy requiring intensive monitoring for toxicity (Heparin, Nitro, Insulin, Cardizem)? @ -No Were any procedures done? @ -No Diagnosis/symptom? @ -Ureteral calculi Acute, or Chronic, or Acute on Chronic? @ -Acute Uncomplicated (without systemic symptoms) or Complicated (systemic symptoms)? @ -Uncomplicated Side effects of treatment? @ -No Exacerbation, Progression, or Severe Exacerbation? @ -No Poses a threat to life or bodily function? How? (Chest pain, [place], [place], pneumonia, PE, COPD, DKA, ARF, appy, cholecystitis, CVA, Diverticulitis, Homicidal, Suicidal, threat to staff... and all critical care pts) @ -No - Lab Data Result diagrams: 08/17/22 23:50 08/17/22 23:50 Lab Results 08/17/22 08/17/22 08/18/22 Range/Units 23:50 23:50 01:39 WBC 8.3 (3.8-10.6) k/uL RBC 4.99 (4.30-5.90) m/uL Hgb 14.7 (13.0-17.5) gm/dL Hct 43.0 (39.0-53.0) % MCV 86.1 (80.0-100.0) fL MCH 29.4 (25.0-35.0) pg MCHC 34.2 (31.0-37.0) g/dL RDW 13.4 (11.5-15.5) % Plt Count 206 (150-450) k/uL MPV 8.9 Neutrophils % 71 % Lymphocytes % 20 % Monocytes % 6 % Eosinophils % 2 % Basophils % 0 % Neutrophils # 5.9 (1.3-7.7) k/uL Lymphocytes # 1.6 (1.0-4.8) k/uL Monocytes # 0.5 (0-1.0) k/uL Eosinophils # 0.2 (0-0.7) k/uL Basophils # 0.0 (0-0.2) k/uL Sodium 138 (137-145) mmol/L Potassium 5.0 (3.5-5.1) mmol/L Chloride 105 (98-107) mmol/L Carbon Dioxide 24 (22-30) mmol/L Anion Gap 9 mmol/L BUN 17 (9-20) mg/dL Creatinine 1.33 H (0.66-1.25) mg/dL Est GFR (CKD-EPI)AfAm 84 (>60 ml/min/1.73 sqM) Est GFR (CKD-EPI)NonAf 73 (>60 ml/min/1.73 sqM) Glucose 120 H (74-99) mg/dL Calcium 9.1 (8.4-10.2) mg/dL Total Bilirubin 0.7 (0.2-1.3) mg/dL AST 32 (17-59) U/L ALT 57 H (4-49) U/L Alkaline Phosphatase 92 (38-126) U/L Total Protein 7.8 (6.3-8.2) g/dL Albumin 4.4 (3.5-5.0) g/dL Lipase 64 (23-300) U/L Urine Color Light Yellow Urine Appearance Clear (Clear) Urine pH 5.0 (5.0-8.0) Ur Specific [place] 1.012 (1.001-1.035) Urine Protein Negative (Negative) Urine Glucose (UA) Negative (Negative) Urine Ketones Negative (Negative) Urine Blood Moderate H (Negative) Urine Nitrite Negative (Negative) Urine Bilirubin Negative (Negative) Urine Urobilinogen <2.0 (<2.0) mg/dL Ur Leukocyte Esterase Negative (Negative) Urine RBC 1 (0-5) /hpf Urine WBC 4 (0-5) /hpf Urine Mucus Rare H (None) /hpf Disposition Clinical Impression: Ureteral calculus, right Disposition: HOME SELF-CARE Condition: Stable Instructions (If sedation given, give patient instructions): Kidney Stones (ED) Additional Instructions: Please return to the Emergency Department if symptoms worsen or any other concerns. Prescriptions: Ketorolac [Toradol] 10 mg PO Q8HR #15 tab Is patient prescribed a controlled substance at d/c from ED?: No Referrals: None,Stated [Primary Care Provider] - 1-2 days Daniel Parry MD [STAFF PHYSICIAN] - 1-2 days Sarbjit Saenz MD [STAFF PHYSICIAN] - 1-2 days Time of Disposition: 03:08
[2022-08-18 01:50] LABS: Appearance,Urine Clear (Clear); Bilirubin,Urine Negative (Negative); Blood,Urine Moderate (Negative); Color,Urine Light Yellow; Glucose,Urine (UA) Negative (Negative); Ketones,Urine Negative (Negative); Leukocyte Esterase,Urine Negative (Negative); Mucus,Urine Rare /hpf; Nitrite,Urine Negative (Negative); Protein,Urine Negative (Negative); RBC,Urine 1 /hpf (0-5); Specific Gravity,Urine 1.012 (1.001-1.035); Urobilinogen,Urine <2.0 mg/dL (<2.0); WBC,Urine 4 /hpf (0-5)
[2022-08-18] MEDS ORDERED: HYDROmorphone 0.5 MG/0.5 ML SYRINGE IVP STA (02:13)
[2022-08-18 02:23] VITALS: BP 144/83; PULSE 87; RESP 18
[2022-08-18] MEDS ORDERED: oxyCODONE-APAP 5-325MG 1 EACH TAB PO STA (03:08)
== END 2022-08-18 03:38 | disposition home or self-care (01) ==
LOC: EC 23:18
DX: N20.1 Calculus of ureter (principal)
CPT/HCPCS: 36415; 74018; 80053; 81001; 83690; 85025; 96361; 96374; 96375; 96376; 99285

== ENCOUNTER 2022-08-21 13:44 | Day surgery (SDC) | payer BC ==
--- NOTE | 2022-08-20 06:18 | P.GSHP ---
History of Present Illness H&P Date: 08/20/22 Chief Complaint: Right renal colic The patient is a 27-year-old white male with no prior history of urolithiasis. On August 16, he experienced acute onset of right flank pain. He underwent computed tomography scan, revealing mild to moderate right hydronephrosis due to a 5-8 mm right proximal ureteral calculus. The calculus could not be seen on a plain radiograph. He was offered the options of medical expulsion therapy versus ureteroscopic removal of the calculus, and he has chosen to proceed with the latter. - Constitutional Constitutional: Denies chills, Denies fever - Gastrointestinal Gastrointestinal: Reports nausea, Reports vomiting - Genitourinary (Male) Genitourinary: Reports flank pain, Reports kidney stones, Denies hematuria Past Medical History Past Medical History: No Reported History Additional Past Medical History / Comment(s): kidney stones. lower back pain. History of Any Multi-Drug Resistant Organisms: None Reported Additional Past Surgical History / Comment(s): vasectomy Past Anesthesia/Blood Transfusion Reactions: No Reported Reaction Smoking Status: Never smoker - Past Family History Father Family Medical History: Hypertension Medications and Allergies Home Medications Medication Instructions Recorded Confirmed Type Lidocaine 5% Patch [Lidoderm 5% 1 patch TOPICAL DAILY PRN #7 patch 08/15/22 08/19/22 Rx Patch] HYDROcodone/APAP 7.5-325MG [[place] 1 tab PO Q6HR PRN 3 Days #12 tab 08/16/22 08/19/22 Rx 7.5-325] Ondansetron Odt [Zofran Odt] 4 mg PO Q8HR PRN #10 tab 08/16/22 08/19/22 Rx Tamsulosin [Flomax] 0.4 mg PO DAILY #7 cap 08/16/22 08/19/22 Rx Ketorolac [Toradol] 10 mg PO Q8HR 08/19/22 08/19/22 History Allergies Allergy/AdvReac Type Severity Reaction Status Date / Time No Known Allergies Allergy Verified 08/19/22 15:44 Surgical - Exam - General well developed, well nourished, no distress - Respiratory normal respiratory effort - Abdomen Abdomen: soft, tender (Mild right lower quadrant tenderness), no guarding, no rigid, no rebound - Genitourinary normal penis with no external lesions, testicles non-tender - Psychiatric oriented to time, oriented to person, oriented to place, speech is normal, memory intact Results - Imaging CT scan - abdomen: report reviewed, image reviewed Assessment and Plan Assessment: Due to intractable pain, the patient has elected to undergo ureteroscopic removal of the calculus. (1) Ureteral calculus, right Status: Acute Code(s): N20.1 - CALCULUS OF URETER SNOMED Code(s): 89507850 Plan: Cystoscopy, right retrograde pyelogram, right ureteroscopy with Holmium laser lithotripsy and possible stone basketing, right ureteral stent insertion. The procedure then reviewed in detail with the patient. He has been made aware of potential risks, which include anesthesia, bleeding, infection, inability to remove the calculus, and ureteral injury.
[~2022-08-21 13:44] MED LIST: ceFAZolin 3 GM in SODIUM CHLORIDE 0.9% 100 ML IVPB PRN
--- NOTE | 2022-08-21 14:00 | XR ---
EXAMINATION TYPE: XR KUB DATE OF EXAM: 08/21/2022 COMPARISON: 08/18/2022 HISTORY: Preop TECHNIQUE: One view abdominal series FINDINGS: The osseous structures are intact. The bowel gas pattern is nonspecific. There is a 3 mm calcificati on in the right hemipelvis. Hypertrophic arthropathy of the hips.. IMPRESSION: 1. 3 mm right hemipelvic calcification correlate for ureteral obstruction.
[2022-08-21] MEDS ORDERED: LACTATED RINGERS 1,000 ML IV ONE ×2 (14:14→16:40)
[2022-08-21] MEDS ORDERED: ONDANSETRON 4 MG/2 ML VIAL ONE (14:14)
[2022-08-21] MEDS: ONDANSETRON 4 MG/2 ML VIAL IVP ONE ×2 (14:15→17:58)
[2022-08-21] MEDS ORDERED: DEXAMETHASONE SOD PHOSPHATE 4 MG/ML 1 ML VIAL IVP ONE (14:16)
[2022-08-21] MEDS ORDERED: fentaNYL (PF) 50 MCG/ML 2 ML AMP ONE (16:17)
[2022-08-21] MEDS ORDERED: MIDAZOLAM 2 MG/2 ML VIAL ONE (16:17)
[2022-08-21] MEDS ORDERED: KETOROLAC 15 MG/ML 1 ML VIAL ONE (16:17)
[2022-08-21] MEDS ORDERED: SUCCINYLCHOLINE CHLORIDE 200 MG/10 ML VIAL IV ONE (16:17)
[2022-08-21] MEDS ORDERED: LIDOCAINE 2% INJ 20 MG/ML (2 ML VIAL) ONE (16:17)
[2022-08-21] MEDS ORDERED: PROPOFOL 10 MG/ML 20 ML VIAL IV ONE (16:17)
[2022-08-21] MEDS ORDERED: IOPAMIDOL-370 50ML BTL MISCELLANE ONE (16:42)
[2022-08-21 17:20] VITALS: RESP 16; TEMP 97
--- NOTE | 2022-08-21 17:33 | P.OP ---
Date of Procedure: 08/21/22 Preoperative Diagnosis: Right Ureteral Calculus Postoperative Diagnosis: Same Procedure(s) Performed: Cystoscopy, right ureteroscopy with Holmium laser lithotripsy, right ureteral stent insertion Anesthesia: JANINAA Surgeon: Sarbjit Saenz Estimated Blood Loss (ml): 0 IV fluids (ml): 700 Pathology: other (Calculus fragments, sent for chemical analysis.) Condition: stable Disposition: PACU Indications for Procedure: The patient is a 27-year-old white male with no prior history of urolithiasis. On August 16, he experienced acute onset of right flank pain. He underwent computed tomography scan, revealing mild to moderate right hydronephrosis due to a 5-8 mm right proximal ureteral calculus. The calculus could not be seen on a plain radiograph. He was offered the options of medical expulsion therapy versus ureteroscopic removal of the calculus, and he has chosen to proceed with the latter. On the preoperative KUB x-ray, it appears that the calculus migrated to the right distal ureter. Operative Findings: Right distal ureteral calculus, fragmented and removed completely. Description of Procedure: The patient was taken to the operating room and placed in the dorsolithotomy position, with legs supported in Dewayne stirrups. The external genitalia was prepped and draped sterilely. The 30 lens was used to introduce the 21-Tuvaluan Kumar cystoscopic sheath through the urethra and into the bladder under direct vision. The prostatic urethra was unremarkable. The bladder was examined in its entirety. Both ureteral orifices were normal anatomic location and configuration, and clear urine effluxed from both. No tumors or foreign bodies were seen. A 10-Tuvaluan cone-tipped catheter was advanced into the left ureteral orifice to dilate the orifice. The cystoscope was removed. The Kumar semirigid ureteroscope was advanced into the bladder, and the right ureteral orifice was cannulated. The ureteroscope was slowly advanced under direct vision, up to the calculus. The 365 micron Holmium laser probe was passed through the ureteroscope, and lithotripsy was performed. Initially, a dusting mode was utilized but the calculus was very dense (likely composed of calcium oxalate m onohydrate), and ultimately a fragmenting mode was utilized. The calculus fragmented adequately, such that all calculus fragments migrated distally into the bladder. Inspection of the ureter showed no residual calculus fragments, and no evidence of ureteral trauma. A 0.035 inch Glidewire was passed through the ureteroscope and up to the right renal pelvis. The ureteroscope was removed, and the Glidewire was backloaded into the cystoscope, which was passed into the bladder. A 28 cm, 6-Tuvaluan double-J ureteral stent was placed over the wire. Proper stent positioning was verified fluoroscopically and endoscopically. The bladder was emptied and the cystoscope removed. The string attached to the stent was taped to the penis using a Tegaderm dressing. The patient tolerated the procedure well and was taken to the recovery room in stable condition. [facility] Report: Procedure Acuity: Semi-Urgent Stone Size and Location: 6 mm, right distal ureter Ureteral Dilation: No Ureteral Access Sheath Used: No Stone Sent for Analysis: Yes All Stones/Fragments Were Removed with a Basket: No Complications: No Preoperative Antibiotics Given: Yes Stent Placed: Yes If Stent Placed, Was String Left Attached: Yes If Stent Placed, When is it to be Removed: 1 week Discharge Medications: Toradol, tamsulosin
--- NOTE | 2022-08-21 17:41 | FL ---
Intraoperative/procedural fluoroscopic services were provided. Total fluoroscopy time is 5 seconds wi th a total of 1 submitted images to PACS. Please see the operative/procedural note for further detail s. DAP: 1.9897
[2022-08-21 18:27] VITALS: PULSE 67
[2022-08-21 18:28] VITALS: BP 122/73
== END 2022-08-21 19:03 | disposition home or self-care (01) ==
LOC: OR 13:44 → 6NMEDSUR 17:15 → OR 19:03
PROVIDERS: ATTEND Urology
DX: N13.2 Hydronephrosis with renal and ureteral calculous obstruction (principal); N23 Unspecified renal colic; Z79.1 Long term (current) use of non-steroidal anti-inflammatories (NSAID); Z79.899 Other long term (current) drug therapy; Z98.52 Vasectomy status; Z82.49 Family history of ischemic heart disease and other diseases of the circulatory system
CPT/HCPCS: 52356; 82365; 74018; C2625; C1758; C1769; J2250; J0330; J1100; J0690; J2405; J3010; J1885; J2704; Q9967; J2001

== ENCOUNTER → 2022-12-10 | Outpatient (CLI) | payer BC ==
--- NOTE | 2022-12-11 07:43 | US ---
EXAMINATION TYPE: US kidneys/renal and bladder DATE OF EXAM: 12/10/2022 COMPARISON: CT 2022 CLINICAL INDICATION: Male, 27 years old with history of N20.1 CALCULUS OF URETER; EXAM MEASUREMENTS: Right Kidney: 11.8 x 5.6 x 6.4 cm Left Kidney: 11.8 x 5.1 x 5.1 cm Right Kidney: No hydronephrosis or masses seen Left Kidney: No hydronephrosis or masses seen Bladder: wnl Bilateral Jets seen: No Spleen: enlarged at 17.9cm There is no evidence for hydronephrosis at this point in time. No nephrolithiasis is seen. No saida s are identified. The urinary bladder is anechoic. Bilateral ureteral jets are not seen. Spleen is enlarged. Hyperechoic echotexture of the visualized liver. IMPRESSION: 1. No hydronephrosis or nephrolithiasis identified. 2. Splenomegaly. 3. Hepatic steatosis.
== END | disposition home or self-care (01) ==
LOC: RADUSWWP 16:13
PROVIDERS: ATTEND Urology
DX: K76.0 Fatty (change of) liver, not elsewhere classified (principal); N20.1 Calculus of ureter
CPT/HCPCS: 76770

== ENCOUNTER → 2023-04-21 | Outpatient (CLI) | payer BC ==
--- NOTE | 2023-04-21 16:35 | P.SLEEP ---
History of Present Illness DATE: 04/21/2023 CONSULTATION/NEW PATIENT EVALUATION HISTORY OF PRESENT ILLNESS/SLEEP-WAKE EVALUATION: 28 year old gentleman had been evaluated in the sleep center for possible obstructive sleep apnea hypopnea syndrome. SLEEP SCHEDULE: Usually sleep schedule from 10 PM to 5 AM on weekdays and from 1011 PM to 8 AM on weekend. FALLING ASLEEP: Usually no problems with falling asleep. DURING SLEEP: Patient has loud snoring and wake up from sleep once with nocturia. No history of hypnogogical hallucinations, sleep paralysis, or cataplexy. DURING THE DAY/WAKE STATE: In the morning patient wake up tired. [place] sleepiness scale is 8. Days patient takes nap afternoon. PAST MEDICAL HISTORY: Hypertension, hyperlipidemia, kidney stone. PAST SURGICAL HISTORY: Surgery for kidney stone in July 2022. MEDICATIONS: Losartan 25 mg once a day. SOCIAL HISTORY: Negative for smoking, alcohol consumption occasional. FAMILY HISTORY: Hypertension, sleep apnea. REVIEW OF SYSTEMS: Snoring, awakenings from sleep. No fevers. No double vision. No recent chest pain. No shortness of breath. No abdominal pain. No bleeding episodes. No blood in urine. No seizure episodes. PHYSICAL EXAMINATION: GENERAL: A pleasant patient without any distress. VITAL SIGNS: BP 142/87 , HR 91 , RR 16 , weight 290.0 pounds, height 6 foot 1-1/4 inches, body mass index 38.0 . HEENT: PERRLA, EOMI. Evaluation of oropharynx showed tongue protrudes midline, low position of soft palate Mallampati 4. NECK: Supple. No JVD. Thyroid is not palpable. 19.5 inches in circumference. LUNGS: Clear to percussion and to auscultation. Good air exchange. No wheezing or rhonchi. HEART: S1, S2 regular. No murmurs, gallops or rubs. ABDOMEN: Soft and nontender. Bowel sounds are present. No organomegaly appreciated. EXTREMITIES: No clubbing or cyanosis. 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 Cranial nerves 2 to 7 intact. There is no f asciculation or atrophy noted. No focal deficits observed. ASSESSMENT: 1. Loud snoring, awakenings from sleep with nocturia, extremely low position of soft palate Mallampati 4, extremely wide neck 19.5 inches in circumference. Obstructive sleep apnea-hypopnea syndrome. 2. Hypertension. 3. Obesity, BMI 38.0. 4. Hyperlipidemia. 5 history of kidney stone, status post surgical treatment in July 2022. PLAN: 1. Home sleep apnea test for evaluation of patient's breathing during sleep. 2. CPAP/BiPAP titration if sleep study confirms obstructive sleep apnea- hypopnea syndrome. 3. Preferable position during sleep on the side. 4. No driving if patient feels any sleepiness. Patient is aware of civil and criminal liability for unsafe driving. 5. Sleep hygiene with regular sleep time for at least 7.5-8 hours. 6. Watching and losing weight. Thank you very much for referring this patient for consultation. Sincerely, Vega Deras MD, PhD, FAASM. Diplomat of [employer], Sleep Medicine Board by [employer] [facility] [place] Past Medical History Past Medical History: No Reported History Additional Past Medical History / Comment(s): kidney stones. lower back pain. History of Any Multi-Drug Resistant Organisms: None Reported Additional Past Surgical History / Comment(s): vasectomy Past Anesthesia/Blood Transfusion Reactions: No Reported Reaction Smoking Status: Never smoker - Past Family History Father Family Medical History: Hypertension Medications and Allergies Home Medications Medication Instructions Recorded Confirmed Type Lidocaine 5% Patch [Lidoderm 5% 1 patch TOPICAL DAILY PRN #7 patch 08/15/22 08/21/22 Rx Patch] HYDROcodone/APAP 7.5-325MG [Pavo 1 tab PO Q6HR PRN 3 Days #12 tab 08/16/22 08/21/22 Rx 7.5-325] Ondansetron Odt [Zofran Odt] 4 mg PO Q8HR PRN #10 tab 08/16/22 08/21/22 Rx Tamsulosin [Flomax] 0.4 mg PO DAILY #7 cap 08/16/22 08/21/22 Rx Ketorolac [Toradol] 10 mg PO Q8HR 08/19/22 08/21/22 History Allergies Allergy/AdvReac Type Severity Reaction Status Date / Time No Known Allergies Allergy Verified 08/21/22 14:04 Sleep Note - Sleep Note Sleep Note: Temperature: Pulse Rate: Respiratory Rate: Blood Pressure: SpO2: Height: Weight: BMI: Neck Circumference:
== END ==
LOC: 3 N SLEEP 16:02
PROVIDERS: ATTEND Internal Medicine
DX: G47.33 Obstructive sleep apnea (adult) (pediatric) (principal); I10 Essential (primary) hypertension; E66.9 Obesity, unspecified; E78.5 Hyperlipidemia, unspecified; Z68.38 Body mass index [BMI] 38.0-38.9, adult; Z87.442 Personal history of urinary calculi; Z79.899 Other long term (current) drug therapy
CPT/HCPCS: 99211

== ENCOUNTER → 2023-05-13 | Outpatient (CLI) | payer BC ==
--- NOTE | 2023-05-19 15:35 | P.PCN ---
Description of Procedure: CLINICAL: A home sleep apnea test has been done for confirmation of possible obstructive sleep apnea-hypopnea syndrome. DESCRIPTION OF PROCEDURE: RESULTS: Recording time was 7 hours 25 minutes. Evaluation time was 7 hours 13 minutes. Evaluation time is sufficient for making conclusion about results of the test. Raw data of sleep recording has been reviewed and is adequate. Respiratory channel showed 0 apneas and 43 hypopneas. Apnea-hypopnea index was 5.9 per hour. Pulse rate in the range between minimum 56, maximum 107, average 73 by computer calculation. Lowest desaturation was 82%. IMPRESSION: 1. Obstructive Sleep Apnea Hypopnea Syndrome in mild range. 2. Hypertension Please see other impressions from consultation. PLAN: 1. The patient will be started on auto-PAP treatment for correction of respiratory abnormallities during sleep. 2. I will see patient for follow up visit to discuss results of the test, evalua te clinical response on treatment with PAP therapy and make any necessary adjustments related to mask fitting, pressure, and humidification. 3. Watching and losing weight. 4. Sleep hygiene with regular time in bed for at least 8 hours. 5. No driving if feeling any sleepiness. Thank you very much for allowing me to participate in the management of your patient. Sincerely, Vega Deras MD, PhD, FAASM Diplomat of [employer] Sleep Medicine Board of [employer] [facility] [place]
== END ==
LOC: 3 N SLEEP 16:33
PROVIDERS: ATTEND Internal Medicine
DX: G47.33 Obstructive sleep apnea (adult) (pediatric) (principal); I10 Essential (primary) hypertension